=== PATIENT | female | born 1925 | race Caucasian/White ===

== ENCOUNTER 2016-12-13 15:40 | Inpatient (IN) | payer OTHER ==
[~2016-12-13] VITALS: Ht 170.2 cm; Wt 139.0 kg
[~2016-12-13 15:40] MED LIST: ADULT LOW DOSE81 M1 PO; ALPRAZOLAM0.25 MG PO; ASPIRIN E.C.81 M1 PO; B-COMPLEX-VITA1 EACH PO; CITALOPRAM HBR10 MG PO; CITRACAL PLUS1 EAC1 PO; CITRACAL-VIT D1 EACH PO; CLONAZEPAM0.5 MG PO; Citracal W/Vitamin D PO; DULCOLAX5 MG PO; Diflucan PO; FAMOTIDINE20 MG PO; FEMARA PO; FLAGYL500 MG PO; FUROSEMIDE40 MG PO; Flagyl PO; GABAPENTIN100 M1 PO; IRON18 MG PO; IRON325 MG PO; KEFLEX250 MG PO; LASIX20 MG PO; LASIX40 MG PO; LETROZOLE2.5 MG PO; LEXAPRO10 MG PO; LEXAPRO20 MG PO; LISINOPRIL20 MG PO; NEURONTIN100 MG PO; NORVASC10 MG PO; NORVASC5 MG PO; Neurontin PO; ONDANSETRON HCL8 MG PO; PANTOPRAZOLE SO40 MG PO; TRAMADOL HCL50 MG PO; Toprol XL PO; VICODIN,LORT1 TABLET PO; VITAMIN B12-FO1 EACH PO; VITAMIN D31000 UNIT PO; Vancocin Oral Soluti PO; Vicodin,Lortab 5/500 PO; Vicodin,Norco 5/325 PO; XANAX0.25 MG PO; ZANTAC150 M1 PO; ZESTRIL,PRINIVI40 MG PO; ZOSYN3.375 GM/5 IV; Zantac PO
[2016-12-13 16:53] LABS: HEMATOCRIT 27.9 % (36.0-46.0); MCH 29.5 PG (29.0-34.0); MCV 89.4 FL (83-99); MEAN PLAT.VOLUME 9.9 uM^3 (9.5-12.4); PLATELET COUNT 223 K/uL (156-360); RBC DIS.WIDTH-CV 14.3 % (11.8-14.6); RBC DIS.WIDTH-SD 45.3 % (39-53); RED BLOOD COUNT 3.12 M/uL (3.80-5.20); WHITE BLOOD COUNT 13.6 K/uL (4.1-10.2)
[2016-12-13 17:03] LABS: CHLORIDE 103 mEq/L (99-109); SODIUM 138 mEq/L (136-147)
[2016-12-13 17:05] LABS: GLUCOSE 115 mg/dL (70-99)
[2016-12-13 17:06] LABS: ANION GAP 12 MEQ/L (2-14)
[2016-12-13 17:09] LABS: GFR ESTIMATE (CALCULATED) 27 mL/min/; UREA NITROGEN (BUN) 46 mg/dL (9-23)
[2016-12-13 20:33] LABS: EOSINOPHIL (%) 0.1 % (0-5); IMMATURE GRANULOCYTE (%) 0.2 % (0.0-0.7); IMMATURE GRANULOCYTE COUNT 0.2 K/uL; LYMPHOCYTE COUNT 1.1 K/uL (1.0-2.8); MONOCYTE (%) 10.2 % (3-12); MONOCYTE COUNT 1.3 K/uL (0-0.8); NEUTROPHIL (%) 81.2 % (45-76); NEUTROPHIL COUNT 10.6 K/uL (1.8-6.4)
[2016-12-13 20:43] LABS: INTER. NORMALIZED RATIO 1.3; PROTHROMBIN TIME 13.8 (9.2-11.2); PTT 35.2 (25-32)
[2016-12-13 20:52] LABS: TROP-I INTERPRETATION NEGATIVE
[2016-12-14] VITALS: BP 117/72
[2016-12-14 05:00] VITALS: BP 110/61
[2016-12-14 07:32] VITALS: BP 106/64
[2016-12-14 08:51] LABS: ANION GAP 10 MEQ/L (2-14); CHLORIDE 103 MEQ/L (99-109); GFR ESTIMATE (CALCULATED) 35 mL/min/; GLUCOSE 89 mg/dL (70-99); SAMPLE HEMOLYSIS CHECK 0; SAMPLE ICTERIC CHECK 0; SAMPLE LIPEMIA CHECK 0; SODIUM 136 MEQ/L (136-147); UREA NITROGEN (BUN) 39 mg/dL (9-23)
[2016-12-14 08:55] LABS: HEMATOCRIT 24.6 % (36.0-46.0); MCH 29.3 PG (29.0-34.0); MCHC 33.3 G/DL (30.0-36.0); MCV 87.9 FL (83-99); MEAN PLAT.VOLUME 10.1 uM^3 (9.5-12.4); PLATELET COUNT 177 K/uL (156-360); RBC DIS.WIDTH-CV 14.5 % (11.8-14.6); RBC DIS.WIDTH-SD 46.8 % (39-53)
[2016-12-14 08:56] LABS: POTASSIUM 3.1 MEQ/L (3.7-5.4); WHITE BLOOD COUNT 8.6 K/uL (4.1-10.2)
[2016-12-14 11:38] VITALS: BP 122/63
[2016-12-14 15:56] VITALS: BP 141/73
[2016-12-14 16:15] LABS: HEMATOCRIT 28.2 % (36.0-46.0); MCV 88.4 FL (83-99)
[2016-12-14 17:00] LABS: IRON 16 MCG/DL (35-150)
[2016-12-14 17:48] LABS: FERRITIN 246 NG/ML (10-291)
[2016-12-14 18:21] LABS: ADD MIUA? YES; BILIRUBIN NEGATIVE; BLOOD NEGATIVE; COLOR YELLOW ((YELLOW)); GLUCOSE (STRIP) NEGATIVE; KETONES NEGATIVE; LEUKOCYTES MODERATE; NITRITE NEGATIVE; PROTEIN (STRIP) NEGATIVE; SPECIFIC GRAVITY 1.013 (1.000-1.030); UROBILINOGEN 0.2 MG/DL (0.2-1.0)
[2016-12-14 18:37] LABS: CASTS NONE SEEN /LPF; CRYSTALS NONE SEEN; EPITHELIAL CELLS RARE; MUCUS NONE SEEN; RED BLOOD CELLS 0-5 /HPF (0-5); UCUL ADDED? NO
[2016-12-14 18:38] LABS: BACTERIA 1+
[2016-12-14 20:00] VITALS: BP 121/73
[2016-12-15] VITALS: BP 138/74
[2016-12-15] MEDS ORDERED: LO-DOSE ASPIRIN81 M2 PO (03:36)
[2016-12-15] MEDS ORDERED: BUMEX1 MG PO ×2 (03:37→03:38)
[2016-12-15] MEDS ORDERED: CELEXA10 MG PO (03:40)
[2016-12-15] MEDS ORDERED: CLONAZEPAM0.5 MG PO (03:41)
[2016-12-15] MEDS ORDERED: DS PREP PAK1 EACH TP (03:42)
[2016-12-15] MEDS ORDERED: DULCOLAX5 MG PO (03:43)
[2016-12-15] MEDS ORDERED: FAMOTIDINE20 MG PO (03:44)
[2016-12-15] MEDS ORDERED: LISINOPRIL20 MG PO (03:45)
[2016-12-15] MEDS ORDERED: LETROZOLE2.5 MG PO (03:45)
[2016-12-15 03:46] VITALS: BP 118/74
[2016-12-15] MEDS ORDERED: PROTONIX40 MG PO (03:46)
[2016-12-15] MEDS ORDERED: METOPROLOL ER-1 EACH PO (03:46)
[2016-12-15] MEDS ORDERED: TRAMADOL HCL50 MG PO (03:47)
[2016-12-15] MEDS ORDERED: VITAMIN B12-FO1 EACH PO (03:48)
[2016-12-15] MEDS ORDERED: VITAMIN D31000 UNI2 PO (03:48)
[2016-12-15] MEDS ORDERED: ZOFRAN8 MG PO (03:49)
[2016-12-15 06:04] LABS: HEMATOCRIT 25.2 % (36.0-46.0); MCH 29.1 PG (29.0-34.0); MCHC 32.9 G/DL (30.0-36.0); MCV 88.4 FL (83-99); MEAN PLAT.VOLUME 10.2 uM^3 (9.5-12.4); PLATELET COUNT 202 K/uL (156-360); RBC DIS.WIDTH-CV 14.5 % (11.8-14.6); RBC DIS.WIDTH-SD 47.2 % (39-53); RED BLOOD COUNT 2.85 M/uL (3.80-5.20); WHITE BLOOD COUNT 7.1 K/uL (4.1-10.2)
[2016-12-15 06:23] LABS: ANION GAP 12 MEQ/L (2-14); CHLORIDE 104 MEQ/L (99-109); GFR ESTIMATE (CALCULATED) 38 mL/min/; GLUCOSE 78 mg/dL (70-99); POTASSIUM 3.4 MEQ/L (3.7-5.4); SAMPLE HEMOLYSIS CHECK 0; SAMPLE ICTERIC CHECK 0; SAMPLE LIPEMIA CHECK 0; SODIUM 139 MEQ/L (136-147); UREA NITROGEN (BUN) 31 mg/dL (9-23)
[2016-12-15 08:05] VITALS: BP 145/71
[2016-12-15 17:00] VITALS: BP 141/70
[2016-12-15 20:00] VITALS: BP 143/82
[2016-12-16] VITALS: BP 132/79
[2016-12-16 04:40] VITALS: BP 140/85
[2016-12-16 09:03] LABS: HEMATOCRIT 24.8 % (36.0-46.0); MCH 29.3 PG (29.0-34.0); MCHC 33.5 G/DL (30.0-36.0); MCV 87.6 FL (83-99); MEAN PLAT.VOLUME 9.6 uM^3 (9.5-12.4); PLATELET COUNT 184 K/uL (156-360); RBC DIS.WIDTH-CV 14.4 % (11.8-14.6); RBC DIS.WIDTH-SD 46.3 % (39-53); RED BLOOD COUNT 2.83 M/uL (3.80-5.20); WHITE BLOOD COUNT 6.7 K/uL (4.1-10.2)
[2016-12-16 09:40] LABS: ANION GAP 8 MEQ/L (2-14); CHLORIDE 109 MEQ/L (99-109); GFR ESTIMATE (CALCULATED) 55 mL/min/; GLUCOSE 86 mg/dL (70-99); POTASSIUM 3.1 MEQ/L (3.7-5.4); SAMPLE HEMOLYSIS CHECK 0; SAMPLE ICTERIC CHECK 0; SAMPLE LIPEMIA CHECK 0; SODIUM 139 MEQ/L (136-147); UREA NITROGEN (BUN) 19 mg/dL (9-23)
[2016-12-16 16:55] LABS: HEMATOCRIT 28.6 % (36.0-46.0); MCH 29.2 PG (29.0-34.0); MCHC 33.2 G/DL (30.0-36.0); MEAN PLAT.VOLUME 9.8 uM^3 (9.5-12.4); PLATELET COUNT 191 K/uL (156-360); RBC DIS.WIDTH-CV 14.4 % (11.8-14.6); RBC DIS.WIDTH-SD 46.9 % (39-53); RED BLOOD COUNT 3.25 M/uL (3.80-5.20); WHITE BLOOD COUNT 7.9 K/uL (4.1-10.2)
[2016-12-16 20:00] VITALS: BP 139/92
[2016-12-17] VITALS: BP 147/67
[2016-12-17 04:00] VITALS: BP 145/89
[2016-12-17 07:47] VITALS: BP 139/89
[2016-12-17 09:21] LABS: ANION GAP 10 MEQ/L (2-14); CHLORIDE 108 MEQ/L (99-109); GFR ESTIMATE (CALCULATED) > 59 mL/min/; GLUCOSE 95 mg/dL (70-99); POTASSIUM 3.6 MEQ/L (3.7-5.4); SAMPLE HEMOLYSIS CHECK 0; SAMPLE ICTERIC CHECK 0; SAMPLE LIPEMIA CHECK 0; SODIUM 140 MEQ/L (136-147); UREA NITROGEN (BUN) 13 mg/dL (9-23)
[2016-12-17 10:56] VITALS: BP 136/65
[2016-12-17] MEDS ORDERED: METRONIDAZOLE500 MG PO (13:14)
[2016-12-17 14:55] VITALS: BP 128/69
== END 2016-12-17 19:50 | disposition home or self-care (01) | DRG 603 ==
LOC: EME 15:40 → EDOF 23:12 → 5SOUTH 23:12
PROVIDERS: Emergency Medicine; Physician Assistant; Physician Assistant Medical
DX: L03.115 Cellulitis of right lower limb (principal); K56.60 Unspecified intestinal obstruction; A04.7 Enterocolitis due to Clostridium difficile; N17.9 Acute kidney failure, unspecified; K55.9 Vascular disorder of intestine, unspecified; F33.9 Major depressive disorder, recurrent, unspecified; N39.0 Urinary tract infection, site not specified; K92.2 Gastrointestinal hemorrhage, unspecified; R18.8 Other ascites; R64 Cachexia; N13.30 Unspecified hydronephrosis; L03.116 Cellulitis of left lower limb; F17.200 Nicotine dependence, unspecified, uncomplicated; I10 Essential (primary) hypertension; K52.9 Noninfective gastroenteritis and colitis, unspecified; L73.9 Follicular disorder, unspecified; D50.0 Iron deficiency anemia secondary to blood loss (chronic); I48.2 Chronic atrial fibrillation; F41.9 Anxiety disorder, unspecified; G89.4 Chronic pain syndrome; K59.09 Other constipation; Z86.718 Personal history of other venous thrombosis and embolism; Z90.49 Acquired absence of other specified parts of digestive tract; Z90.12 Acquired absence of left breast and nipple; Z85.3 Personal history of malignant neoplasm of breast; Z85.51 Personal history of malignant neoplasm of bladder
CPT/HCPCS: 71010; 74176; 80048; 81003; 82272; 82607; 82728; 82746; 83540; 83605; 84466; 84484; 85014; 85018; 85025; 85027; 85610; 85730; 86850; 86900; 86901; 87040; 87493; 87801; 93005; 93306; 97530 GO; 99281; 99285; C9113; J0690; J1756; J3480; J7030; J7050; S0030

== ENCOUNTER 2016-12-26 11:59 | Inpatient (IN) | payer OTHER ==
[~2016-12-26] VITALS: Ht 170.2 cm; Wt 67.7 kg
[~2016-12-26 11:59] MED LIST changes: +BUMEX1 MG PO; +CELEXA10 MG PO; +DS PREP PAK1 EACH TP; +LO-DOSE ASPIRIN81 M2 PO; +METOPROLOL ER-1 EACH PO; +METRONIDAZOLE500 MG PO; +PROTONIX40 MG PO; +VITAMIN D31000 UNI2 PO; +ZOFRAN8 MG PO
[2016-12-26 12:49] LABS: EOSINOPHIL (%) 0.2 % (0-5); HEMATOCRIT 31.7 % (36.0-46.0); IMMATURE GRANULOCYTE (%) 0.2 % (0.0-0.7); IMMATURE GRANULOCYTE COUNT 0.2 K/uL; MCH 29.2 PG (29.0-34.0); MCHC 32.8 G/DL (30.0-36.0); MEAN PLAT.VOLUME 9.8 uM^3 (9.5-12.4); MONOCYTE (%) 11.1 % (3-12); MONOCYTE COUNT 0.9 K/uL (0-0.8); NEUTROPHIL (%) 76.7 % (45-76); NEUTROPHIL COUNT 6.3 K/uL (1.8-6.4); PLATELET COUNT 243 K/uL (156-360); RBC DIS.WIDTH-CV 15.7 % (11.8-14.6); RBC DIS.WIDTH-SD 48.7 % (39-53); RED BLOOD COUNT 3.56 M/uL (3.80-5.20); WHITE BLOOD COUNT 8.3 K/uL (4.1-10.2)
[2016-12-26 12:54] LABS: INTER. NORMALIZED RATIO 1.4; PROTHROMBIN TIME 14.7 (9.2-11.2)
[2016-12-26 12:59] LABS: CHLORIDE 105 mEq/L (99-109); POTASSIUM 4.2 mEq/L (3.7-5.4); SODIUM 134 mEq/L (136-147)
[2016-12-26 13:01] LABS: GLUCOSE 84 mg/dL (70-99)
[2016-12-26 13:03] LABS: ANION GAP 13 MEQ/L (2-14)
[2016-12-26 13:05] LABS: GFR ESTIMATE (CALCULATED) 30 mL/min/
[2016-12-26 13:06] LABS: UREA NITROGEN (BUN) 24 mg/dL (9-23)
[2016-12-26] MEDS ORDERED: CYANOCOBALAM1000 MCG PO (13:57)
[2016-12-26] MEDS ORDERED: TUMS500 MG PO (13:57)
[2016-12-26] MEDS ORDERED: METOPROLOL SUCC25 MG PO (13:58)
[2016-12-26] MEDS ORDERED: GABAPENTIN100 MG PO (14:02)
[2016-12-26 14:23] LABS: C-REACTIVE PROTEIN 3.7 MG/L (0-10)
[2016-12-26 17:00] VITALS: BP 100/53
[2016-12-26 17:07] VITALS: BP 100/53
[2016-12-26 21:10] VITALS: BP 102/58
[2016-12-27 01:08] VITALS: BP 110/80
[2016-12-27 04:30] VITALS: BP 108/74
[2016-12-27 07:28] VITALS: BP 110/80
[2016-12-27 07:35] LABS: EOSINOPHIL (%) 1.2 % (0-5); EOSINOPHIL COUNT 0.1 K/uL (0-0.3); HEMATOCRIT 32.6 % (36.0-46.0); IMMATURE GRANULOCYTE (%) 0.4 % (0.0-0.7); LYMPHOCYTE COUNT 0.6 K/uL (1.0-2.8); MCH 29.5 PG (29.0-34.0); MCHC 33.4 G/DL (30.0-36.0); MCV 88.3 FL (83-99); MEAN PLAT.VOLUME 10.1 uM^3 (9.5-12.4); MONOCYTE (%) 14.2 % (3-12); MONOCYTE COUNT 1.2 K/uL (0-0.8); NEUTROPHIL (%) 76.1 % (45-76); NEUTROPHIL COUNT 6.3 K/uL (1.8-6.4); PLATELET COUNT 225 K/uL (156-360); RBC DIS.WIDTH-SD 51.1 % (39-53); RED BLOOD COUNT 3.69 M/uL (3.80-5.20); WHITE BLOOD COUNT 8.3 K/uL (4.1-10.2)
[2016-12-27 07:48] LABS: ANION GAP 11 MEQ/L (2-14); CHLORIDE 107 MEQ/L (99-109); GFR ESTIMATE (CALCULATED) 32 mL/min/; GLUCOSE 72 mg/dL (70-99); POTASSIUM 3.8 MEQ/L (3.7-5.4); SAMPLE HEMOLYSIS CHECK 0; SAMPLE ICTERIC CHECK 0; SAMPLE LIPEMIA CHECK 0; SODIUM 137 MEQ/L (136-147); UREA NITROGEN (BUN) 23 mg/dL (9-23)
[2016-12-27 09:07] LABS: ADD MIUA? YES; BILIRUBIN NEGATIVE; BLOOD NEGATIVE; COLOR DK YELLOW ((YELLOW)); GLUCOSE (STRIP) NEGATIVE; KETONES NEGATIVE; LEUKOCYTES SMALL; NITRITE NEGATIVE; PH, URINE 5.5 (5-8); PROTEIN (STRIP) NEGATIVE; UROBILINOGEN 0.2 MG/DL (0.2-1.0)
[2016-12-27 10:17] LABS: BACTERIA 1+; EPITHELIAL CELLS RARE; MUCUS NONE SEEN; RED BLOOD CELLS 0-5 /HPF (0-5)
[2016-12-27 10:18] LABS: CASTS NONE SEEN /LPF; CRYSTALS NONE SEEN
[2016-12-27 11:52] VITALS: BP 110/80
[2016-12-27 16:10] VITALS: BP 158/66
[2016-12-27 23:29] VITALS: BP 128/70
[2016-12-28 03:37] VITALS: BP 123/79
[2016-12-28 08:00] VITALS: BP 118/75
[2016-12-28 12:00] VITALS: BP 143/82
[2016-12-28 13:54] LABS: HEMATOCRIT 29.3 % (36.0-46.0); MCH 29.9 PG (29.0-34.0); MCHC 33.8 G/DL (30.0-36.0); MCV 88.5 FL (83-99); MEAN PLAT.VOLUME 10.7 uM^3 (9.5-12.4); PLATELET COUNT 221 K/uL (156-360); RBC DIS.WIDTH-CV 16.1 % (11.8-14.6); RBC DIS.WIDTH-SD 51.7 % (39-53); RED BLOOD COUNT 3.31 M/uL (3.80-5.20); WHITE BLOOD COUNT 6.5 K/uL (4.1-10.2)
[2016-12-28 14:09] LABS: ALKALINE PHOSPHATASE 65 IU/L (3-129); ANION GAP 8 MEQ/L (2-14); CHLORIDE 109 MEQ/L (99-109); GFR ESTIMATE (CALCULATED) 45 mL/min/; POTASSIUM 4.1 MEQ/L (3.7-5.4); SAMPLE HEMOLYSIS CHECK 0; SAMPLE ICTERIC CHECK 0; SAMPLE LIPEMIA CHECK 0; SODIUM 137 MEQ/L (136-147); TOTAL BILIRUBIN 0.5 MG/DL (0.0-1.0); UREA NITROGEN (BUN) 22 mg/dL (9-23)
[2016-12-28 14:10] LABS: GLUCOSE 91 mg/dL (70-99)
[2016-12-28 23:41] VITALS: BP 131/72
[2016-12-29 04:00] VITALS: BP 140/74
[2016-12-29 07:34] LABS: EOSINOPHIL (%) 0.4 % (0-5); HEMATOCRIT 26.2 % (36.0-46.0); IMMATURE GRANULOCYTE (%) 0.4 % (0.0-0.7); LYMPHOCYTE COUNT 1.2 K/uL (1.0-2.8); MCH 29.4 PG (29.0-34.0); MCHC 33.6 G/DL (30.0-36.0); MCV 87.6 FL (83-99); MEAN PLAT.VOLUME 10.5 uM^3 (9.5-12.4); MONOCYTE (%) 9.1 % (3-12); MONOCYTE COUNT 0.7 K/uL (0-0.8); NEUTROPHIL (%) 73.6 % (45-76); NEUTROPHIL COUNT 5.3 K/uL (1.8-6.4); PLATELET COUNT 208 K/uL (156-360); RBC DIS.WIDTH-CV 15.9 % (11.8-14.6); RBC DIS.WIDTH-SD 50.3 % (39-53); RED BLOOD COUNT 2.99 M/uL (3.80-5.20); WHITE BLOOD COUNT 7.2 K/uL (4.1-10.2)
[2016-12-29 08:00] VITALS: BP 127/79
[2016-12-29 08:09] LABS: ANION GAP 7 MEQ/L (2-14); CHLORIDE 113 MEQ/L (99-109); GFR ESTIMATE (CALCULATED) 55 mL/min/; GLUCOSE 68 mg/dL (70-99); POTASSIUM 4.4 MEQ/L (3.7-5.4); SAMPLE HEMOLYSIS CHECK 0; SAMPLE ICTERIC CHECK 0; SAMPLE LIPEMIA CHECK 0; SODIUM 141 MEQ/L (136-147); UREA NITROGEN (BUN) 18 mg/dL (9-23)
[2016-12-29 10:04] LABS: ALKALINE PHOSPHATASE 56 IU/L (3-129); DIRECT BILIRUBIN 0.1 mg/dL (0.0-0.3); MAGNESIUM 1.2 mg/dl (1.3-2.7); TOTAL BILIRUBIN 0.5 MG/DL (0.0-1.0)
[2016-12-29] MEDS ORDERED: IRON325 MG PO (12:08)
[2016-12-29 15:10] VITALS: BP 127/68
[2016-12-29 19:01] VITALS: BP 124/72
[2016-12-29 23:31] VITALS: BP 126/86
[2016-12-30 04:14] VITALS: BP 148/83
[2016-12-30 12:00] VITALS: BP 125/79
== END 2016-12-30 13:07 | DRG 683 ==
LOC: EME → EDBD 11:59 → EME 11:59 → 2EAST 13:43 → 4EAST 13:43 → EDOF 13:43 → 4EAST 16:11 → 2EAST 12-27 11:22
PROVIDERS: Emergency Medicine; Hospitalist; Internal Medicine
DX: N17.9 Acute kidney failure, unspecified (principal); R64 Cachexia; R19.5 Other fecal abnormalities; I95.9 Hypotension, unspecified; D64.9 Anemia, unspecified; R62.7 Adult failure to thrive; E83.42 Hypomagnesemia; E86.0 Dehydration; I10 Essential (primary) hypertension; I48.0 Paroxysmal atrial fibrillation; F41.9 Anxiety disorder, unspecified; J44.9 Chronic obstructive pulmonary disease, unspecified; K21.9 Gastro-esophageal reflux disease without esophagitis; G89.29 Other chronic pain; F32.9 Major depressive disorder, single episode, unspecified; Z66 Do not resuscitate; Z87.891 Personal history of nicotine dependence; Z85.3 Personal history of malignant neoplasm of breast; Z85.51 Personal history of malignant neoplasm of bladder; Z90.12 Acquired absence of left breast and nipple; Z79.82 Long term (current) use of aspirin; Z60.2 Problems related to living alone
CPT/HCPCS: 71010; 80048; 80053; 80076; 81003; 83735; 85025; 85027; 85610; 86140; 86850; 86900; 86901; 86920; 87493; 93971; 97530 GO; 97530 GP; 99281; 99285; J3475; J7030

== ENCOUNTER 2017-01-21 18:54 | Emergency (ER) | payer OTHER ==
[~2017-01-21] VITALS: Ht 177.8 cm; Wt 74.2 kg
[~2017-01-21 18:54] MED LIST changes: +CYANOCOBALAM1000 MCG PO; +GABAPENTIN100 MG PO; +METOPROLOL SUCC25 MG PO; +TUMS500 MG PO
[2017-01-21] MEDS ORDERED: TYLENOL REGULA325 MG PO (19:28)
[2017-01-21 21:51] VITALS: BP 173/75
== END 2017-01-21 21:57 ==
LOC: EME → EDBD 18:54 → EME 21:57
DX: S09.90XA Unspecified injury of head, initial encounter (principal); S00.03XA Contusion of scalp, initial encounter; W06.XXXA Fall from bed, initial encounter; Y92.122 Bedroom in nursing home as the place of occurrence of the external cause; I10 Essential (primary) hypertension; K21.9 Gastro-esophageal reflux disease without esophagitis; Z85.3 Personal history of malignant neoplasm of breast; F17.200 Nicotine dependence, unspecified, uncomplicated
CPT/HCPCS: 70450; 99281; 99284

== ENCOUNTER 2017-03-29 12:48 | Emergency (ER) | payer OTHER ==
[~2017-03-29] VITALS: Ht 165.1 cm; Wt 62.4 kg
[~2017-03-29 12:48] MED LIST changes: +KLOR-CON M2020 MEQ PO; +TYLENOL REGULA325 MG PO
[2017-03-29 13:38] LABS: EOSINOPHIL (%) 0.2 % (0-5); HEMATOCRIT 31.7 % (36.0-46.0); IMMATURE GRANULOCYTE (%) 0.7 % (0.0-0.7); IMMATURE GRANULOCYTE COUNT 0.1 K/uL; INSTRUMENT ABS NEUTROPHIL CT 6.3 K/uL; LYMPHOCYTE COUNT 1.1 K/uL (1.0-2.8); MCH 29.8 PG (29.0-34.0); MCHC 31.9 G/DL (30.0-36.0); MCV 93.5 FL (83-99); MEAN PLAT.VOLUME 9.7 uM^3 (9.5-12.4); MONOCYTE (%) 11.8 % (3-12); NEUTROPHIL (%) 74.4 % (45-76); NEUTROPHIL COUNT 6.3 K/uL (1.8-6.4); PLATELET COUNT 324 K/uL (156-360); RBC DIS.WIDTH-CV 15.1 % (11.8-14.6); RBC DIS.WIDTH-SD 51.5 % (39-53); RED BLOOD COUNT 3.39 M/uL (3.80-5.20); WHITE BLOOD COUNT 8.5 K/uL (4.1-10.2)
[2017-03-29 13:46] LABS: CHLORIDE 107 mEq/L (99-109); POTASSIUM 3.3 mEq/L (3.7-5.4); SODIUM 140 mEq/L (136-147)
[2017-03-29 13:48] LABS: GLUCOSE 88 mg/dL (70-99)
[2017-03-29 13:49] LABS: ANION GAP 10 MEQ/L (2-14)
[2017-03-29 13:52] LABS: GFR ESTIMATE (CALCULATED) > 59 mL/min/
[2017-03-29 13:53] LABS: UREA NITROGEN (BUN) 23 mg/dL (9-23)
[2017-03-29 13:59] LABS: TROP-I INTERPRETATION NEGATIVE; TROPONIN-I 0.05 ng/mL (0.0-0.30)
[2017-03-29 14:10] LABS: ADD MIUA? YES; BILIRUBIN NEGATIVE; BLOOD MODERATE; COLOR YELLOW ((YELLOW)); GLUCOSE (STRIP) NEGATIVE; KETONES 5; LEUKOCYTES NEGATIVE; NITRITE NEGATIVE; PROTEIN (STRIP) 30; SPECIFIC GRAVITY 1.013 (1.000-1.030); UROBILINOGEN 0.2 MG/DL (0.2-1.0)
[2017-03-29 14:33] LABS: BACTERIA RARE /HPF; EPITHELIAL CELLS RARE /HPF; MUCUS TRACE /LPF; RED BLOOD CELLS 0-5 /HPF (0-5); UCUL ADDED? NO; WHITE BLOOD CELLS NONE SEEN /HPF (0-5)
[2017-03-29] MEDS ORDERED: AMBIEN5 MG PO (15:31)
[2017-03-29] MEDS ORDERED: SENNA8.6 MG PO (15:32)
[2017-03-29] MEDS ORDERED: PANTOPRAZOLE SO40 MG PO (15:32)
[2017-03-29] MEDS ORDERED: TRAZODONE HCL50 MG PO (15:32)
[2017-03-29] MEDS ORDERED: FUROSEMIDE40 MG PO (15:33)
[2017-03-29] MEDS ORDERED: FINASTERIDE5 MG PO (15:33)
[2017-03-29 18:36] VITALS: BP 141/89
== END 2017-03-29 18:37 ==
LOC: EME 12:48
PROVIDERS: Emergency Medicine
DX: R41.82 Altered mental status, unspecified (principal); R07.9 Chest pain, unspecified; I10 Essential (primary) hypertension; Z85.3 Personal history of malignant neoplasm of breast; Z88.6 Allergy status to analgesic agent; Z88.2 Allergy status to sulfonamides; Z87.891 Personal history of nicotine dependence
CPT/HCPCS: 70450; 71010; 80048; 81003; 84484; 85025; 93005; 99281; 99284

== ENCOUNTER 2017-05-17 22:34 | Inpatient (IN) | payer OTHER ==
[~2017-05-17] VITALS: Ht 160 cm; Wt 65.0 kg
[~2017-05-17 22:34] MED LIST changes: +AMBIEN5 MG PO; +FINASTERIDE5 MG PO; +SENNA8.6 MG PO; +TRAZODONE HCL50 MG PO
[2017-05-17 23:07] LABS: HEMATOCRIT 27.6 % (36.0-46.0); MCH 28.6 PG (29.0-34.0); MCHC 31.5 G/DL (30.0-36.0); MCV 90.8 FL (83-99); MEAN PLAT.VOLUME 9.7 uM^3 (9.5-12.4); PLATELET COUNT 230 K/uL (156-360); RBC DIS.WIDTH-CV 14.5 % (11.8-14.6); RBC DIS.WIDTH-SD 47.9 % (39-53); RED BLOOD COUNT 3.04 M/uL (3.80-5.20)
[2017-05-17 23:16] LABS: INTER. NORMALIZED RATIO 1.3; PROTHROMBIN TIME 13.4 (9.2-11.2); PTT 36.2 (25-32)
[2017-05-17 23:21] LABS: CHLORIDE 100 mEq/L (99-109); POTASSIUM 3.5 mEq/L (3.7-5.4); SODIUM 135 mEq/L (136-147)
[2017-05-17 23:22] LABS: GLUCOSE 105 mg/dL (70-99)
[2017-05-17 23:24] LABS: ANION GAP 9 MEQ/L (2-14)
[2017-05-17 23:26] LABS: GFR ESTIMATE (CALCULATED) 50 mL/min/
[2017-05-17 23:27] LABS: UREA NITROGEN (BUN) 15 mg/dL (9-23)
[2017-05-17 23:31] LABS: TROP-I INTERPRETATION INDETERMINATE; TROPONIN-I 0.49 ng/mL (0.0-0.30)
[2017-05-18] VITALS (7 sets, daily range): BP systolic 143–156; BP diastolic 73–94
[2017-05-18] MEDS ORDERED: CEPHALEXIN500 MG PO (00:57)
[2017-05-18] MEDS ORDERED: FAMOTIDINE20 MG PO (00:59)
[2017-05-18] MEDS ORDERED: FLORASTOR250 MG PO (01:02)
[2017-05-18] MEDS ORDERED: VITAMIN D31000 UNI2 PO (01:05)
[2017-05-18] MEDS ORDERED: CYANOCOBALAM1000 MCG PO (01:05)
[2017-05-18] MEDS ORDERED: ZOFRAN8 MG PO (01:08)
[2017-05-18 01:46] LABS: BASE EXCESS 3.2 mEq/L (-3 to +3); BICARBONATE 26.5 mEq/L (22-26); CARBOXY HGB 1.6 % (0-5); METHEMOGLOBIN 1.7 % (0-1.5); PCO2 34 mm Hg (35-45); PO2 74 mm Hg (80-100)
[2017-05-18 01:47] LABS: COMMENTS - BLOOD GASES C+; DEVICE NC; O2 FLOW 4 L/MIN; SITE LR; TOTAL RESP RATE 20 resp/min
[2017-05-18 03:28] LABS: TOTAL BILIRUBIN 0.6 mg/dL (0.0-1.0)
[2017-05-18 03:29] LABS: ALKALINE PHOSPHATASE 81 IU/L (3-129)
[2017-05-18 03:32] LABS: DIRECT BILIRUBIN 0.3 mg/dL (0.0-0.3)
[2017-05-18 04:26] LABS: METH RESISTANT S AUREUS PCR POSITIVE (NEGATIVE)
[2017-05-18 04:30] LABS: PROBE CHECK PASS
[2017-05-18 05:30] LABS: EOSINOPHIL (%) 0.1 % (0-5); HEMATOCRIT 26.3 % (36.0-46.0); IMMATURE GRANULOCYTE (%) 1.1 % (0.0-0.7); IMMATURE GRANULOCYTE COUNT 0.1 K/uL; INSTRUMENT ABS NEUTROPHIL CT 9.7 K/uL; LYMPHOCYTE COUNT 0.5 K/uL (1.0-2.8); MCH 29.2 PG (29.0-34.0); MCHC 32.3 G/DL (30.0-36.0); MCV 90.4 FL (83-99); MEAN PLAT.VOLUME 10.1 uM^3 (9.5-12.4); MONOCYTE (%) 4.4 % (3-12); MONOCYTE COUNT 0.5 K/uL (0-0.8); NEUTROPHIL (%) 89.8 % (45-76); NEUTROPHIL COUNT 9.7 K/uL (1.8-6.4); PLATELET COUNT 235 K/uL (156-360); RBC DIS.WIDTH-CV 14.4 % (11.8-14.6); RBC DIS.WIDTH-SD 47.9 % (39-53); RED BLOOD COUNT 2.91 M/uL (3.80-5.20); WHITE BLOOD COUNT 10.8 K/uL (4.1-10.2)
[2017-05-18 05:48] LABS: TROP-I INTERPRETATION INDETERMINATE; TROPONIN-I 0.45 ng/mL (0.0-0.30)
[2017-05-18 05:54] LABS: ANION GAP 11 MEQ/L (2-14); CHLORIDE 100 MEQ/L (99-109); GFR ESTIMATE (CALCULATED) 50 mL/min/; GLUCOSE 124 mg/dL (70-99); POTASSIUM 3.3 MEQ/L (3.7-5.4); SAMPLE HEMOLYSIS CHECK 0; SAMPLE ICTERIC CHECK 0; SAMPLE LIPEMIA CHECK 0; SODIUM 136 MEQ/L (136-147); UREA NITROGEN (BUN) 15 mg/dL (9-23)
[2017-05-18 07:51] LABS: INTERNAL CONTROL VALID? YES
[2017-05-18 17:21] LABS: TROP-I INTERPRETATION INDETERMINATE; TROPONIN-I 0.39 ng/mL (0.0-0.30)
[2017-05-19 06:43] LABS: HEMATOCRIT 26.2 % (36.0-46.0); MCH 28.7 PG (29.0-34.0); MCHC 31.3 G/DL (30.0-36.0); MCV 91.6 FL (83-99); MEAN PLAT.VOLUME 10.3 uM^3 (9.5-12.4); PLATELET COUNT 238 K/uL (156-360); RBC DIS.WIDTH-CV 14.4 % (11.8-14.6); RBC DIS.WIDTH-SD 48.1 % (39-53); RED BLOOD COUNT 2.86 M/uL (3.80-5.20); WHITE BLOOD COUNT 8.8 K/uL (4.1-10.2)
[2017-05-19 07:18] LABS: ANION GAP 9 MEQ/L (2-14); CHLORIDE 103 MEQ/L (99-109); GFR ESTIMATE (CALCULATED) 50 mL/min/; GLUCOSE 101 mg/dL (70-99); MAGNESIUM 1.6 mg/dl (1.3-2.7); SAMPLE HEMOLYSIS CHECK 0; SAMPLE ICTERIC CHECK 0; SAMPLE LIPEMIA CHECK 0; SODIUM 139 MEQ/L (136-147); UREA NITROGEN (BUN) 20 mg/dL (9-23)
[2017-05-19 07:23] LABS: POTASSIUM 4.6 MEQ/L (3.7-5.4)
[2017-05-19 08:19] VITALS: BP 177/92
[2017-05-19 11:43] VITALS: BP 150/72
[2017-05-19 16:21] VITALS: BP 134/76
[2017-05-19 23:40] VITALS: BP 133/71
[2017-05-20 06:05] LABS: HEMATOCRIT 24.4 % (36.0-46.0); MCHC 32.8 G/DL (30.0-36.0); MCV 91.4 FL (83-99); MEAN PLAT.VOLUME 10.4 uM^3 (9.5-12.4); PLATELET COUNT 219 K/uL (156-360); RBC DIS.WIDTH-CV 14.4 % (11.8-14.6); RBC DIS.WIDTH-SD 47.8 % (39-53); RED BLOOD COUNT 2.67 M/uL (3.80-5.20); WHITE BLOOD COUNT 8.9 K/uL (4.1-10.2)
[2017-05-20 06:45] LABS: ANION GAP 9 MEQ/L (2-14); CHLORIDE 101 MEQ/L (99-109); GFR ESTIMATE (CALCULATED) 50 mL/min/; GLUCOSE 102 mg/dL (70-99); MAGNESIUM 1.7 mg/dl (1.3-2.7); POTASSIUM 4.1 MEQ/L (3.7-5.4); SAMPLE HEMOLYSIS CHECK 0; SAMPLE ICTERIC CHECK 0; SAMPLE LIPEMIA CHECK 0; SODIUM 137 MEQ/L (136-147); UREA NITROGEN (BUN) 24 mg/dL (9-23)
[2017-05-20] MEDS ORDERED: PREDNISONE10 M1 PO (07:15)
[2017-05-20] MEDS ORDERED: CEFDINIR300 MG PO (07:15)
[2017-05-20 07:24] VITALS: BP 131/64
== END 2017-05-20 12:22 | DRG 190 ==
LOC: EME 22:34 → 5SOUTH 05-18 00:56 → EDOF 05-18 00:56 → 4WEST 05-18 02:54 → 5SOUTH 05-18 14:03 → 4WEST 05-18 14:03 → 5SOUTH 05-18 14:53
PROVIDERS: Emergency Medicine; Hospitalist
DX: J44.0 Chronic obstructive pulmonary disease with (acute) lower respiratory infection (principal); J18.9 Pneumonia, unspecified organism; Y95 Nosocomial condition; J96.21 Acute and chronic respiratory failure with hypoxia; N39.0 Urinary tract infection, site not specified; L03.116 Cellulitis of left lower limb; J44.1 Chronic obstructive pulmonary disease with (acute) exacerbation; I48.0 Paroxysmal atrial fibrillation; E83.42 Hypomagnesemia; E87.1 Hypo-osmolality and hyponatremia; E87.6 Hypokalemia; E87.70 Fluid overload, unspecified; F03.90 Unspecified dementia, unspecified severity, without behavioral disturbance, psychotic disturbance, mood disturbance, and anxiety; I87.2 Venous insufficiency (chronic) (peripheral); J90 Pleural effusion, not elsewhere classified; D64.9 Anemia, unspecified; K21.9 Gastro-esophageal reflux disease without esophagitis; I10 Essential (primary) hypertension; I51.7 Cardiomegaly; F32.9 Major depressive disorder, single episode, unspecified; Z66 Do not resuscitate; Z85.51 Personal history of malignant neoplasm of bladder; Z85.528 Personal history of other malignant neoplasm of kidney; Z85.3 Personal history of malignant neoplasm of breast; Z87.891 Personal history of nicotine dependence; Z99.3 Dependence on wheelchair; Z90.10 Acquired absence of unspecified breast and nipple
CPT/HCPCS: 36600; 71010; 71250; 78582; 80048; 80076; 82803; 83605; 83735; 83880; 84484; 85025; 85027; 85379; 85610; 85730; 86860; 86870; 86880; 86880 90; 86885 90; 86886 90; 86900; 86900 90; 86901; 86901 90; 86904 90; 86906 90; 86920; 86970 90; 86976 90; 87040; 87070; 87205; 87449; 87641; 93005; 93971; 94640; 94799; 99202; 99281; 99285; A9540; A9567; J0456; J0696; J1644; J1940; J2543; J2930; J7040; J7050; J7512

== ENCOUNTER 2017-05-30 16:02 | Observation (INO) | payer OTHER ==
[~2017-05-30] VITALS: Ht 165.1 cm; Wt 68.3 kg
[~2017-05-30 16:02] MED LIST changes: +CEFDINIR300 MG PO; +CEPHALEXIN500 MG PO; +FLORASTOR250 MG PO; +PREDNISONE10 M1 PO
[2017-05-30 17:55] LABS: HEMATOCRIT 21.6 % (36.0-46.0); MCH 28.9 PG (29.0-34.0); MCV 93.1 FL (83-99); MEAN PLAT.VOLUME 10.7 uM^3 (9.5-12.4); PLATELET COUNT 205 K/uL (156-360); RBC DIS.WIDTH-CV 15.7 % (11.8-14.6); RBC DIS.WIDTH-SD 52.2 % (39-53); RED BLOOD COUNT 2.32 M/uL (3.80-5.20); WHITE BLOOD COUNT 10.6 K/uL (4.1-10.2)
[2017-05-30 17:57] LABS: CHLORIDE 101 mEq/L (99-109); POTASSIUM 3.7 mEq/L (3.7-5.4); SODIUM 134 mEq/L (136-147)
[2017-05-30 18:00] LABS: GLUCOSE 95 mg/dL (70-99)
[2017-05-30 18:01] LABS: ANION GAP 9 MEQ/L (2-14)
[2017-05-30 18:02] LABS: TOTAL BILIRUBIN 0.7 mg/dL (0.0-1.0)
[2017-05-30 18:03] LABS: ALKALINE PHOSPHATASE 79 IU/L (3-129); GFR ESTIMATE (CALCULATED) 45 mL/min/
[2017-05-30 18:04] LABS: UREA NITROGEN (BUN) 21 mg/dL (9-23)
[2017-05-30 18:09] LABS: TROP-I INTERPRETATION NEGATIVE; TROPONIN-I 0.23 ng/mL (0.0-0.30)
[2017-05-30] MEDS ORDERED: ONDANSETRON HCL8 MG PO (20:37)
[2017-05-30 23:28] VITALS: BP 143/73
[2017-05-30 23:47] VITALS: BP 147/70
[2017-05-31] VITALS (10 sets, daily range): BP systolic 127–170; BP diastolic 68–82
[2017-05-31 01:26] LABS: TROP-I INTERPRETATION NEGATIVE
[2017-05-31 02:52] LABS: ADD MIUA? YES; BILIRUBIN NEGATIVE; BLOOD MODERATE; COLOR YELLOW ((YELLOW)); GLUCOSE (STRIP) NEGATIVE; KETONES NEGATIVE; LEUKOCYTES MODERATE; NITRITE NEGATIVE; PROTEIN (STRIP) NEGATIVE; SPECIFIC GRAVITY 1.008 (1.000-1.030); UROBILINOGEN 0.2 MG/DL (0.2-1.0)
[2017-05-31 02:59] LABS: BACTERIA 2+ /HPF; EPITHELIAL CELLS RARE /HPF; MUCUS TRACE /LPF; UCUL ADDED? YES
[2017-05-31 03:49] LABS: METH RESISTANT S AUREUS PCR POSITIVE (NEGATIVE)
[2017-05-31 03:52] LABS: PROBE CHECK PASS
[2017-05-31 06:46] LABS: HEMATOCRIT 24.4 % (36.0-46.0); MCH 29.1 PG (29.0-34.0); MEAN PLAT.VOLUME 10.4 uM^3 (9.5-12.4); NRBC (%) 0.2 /100 WBC (0-0); PLATELET COUNT 199 K/uL (156-360); RBC DIS.WIDTH-CV 15.7 % (11.8-14.6); RBC DIS.WIDTH-SD 50.9 % (39-53); RED BLOOD COUNT 2.68 M/uL (3.80-5.20); WHITE BLOOD COUNT 9.5 K/uL (4.1-10.2)
[2017-05-31 07:15] LABS: ANION GAP 8 MEQ/L (2-14); CHLORIDE 101 MEQ/L (99-109); GFR ESTIMATE (CALCULATED) 45 mL/min/; GLUCOSE 94 mg/dL (70-99); POTASSIUM 4.1 MEQ/L (3.7-5.4); SAMPLE HEMOLYSIS CHECK 0; SAMPLE ICTERIC CHECK 0; SAMPLE LIPEMIA CHECK 0; SODIUM 138 MEQ/L (136-147); UREA NITROGEN (BUN) 21 mg/dL (9-23)
[2017-05-31 07:17] LABS: TROP-I INTERPRETATION NEGATIVE; TROPONIN-I 0.21 ng/mL (0.0-0.30)
[2017-05-31 15:04] LABS: HEMATOCRIT 27.5 % (36.0-46.0); MCV 90.5 FL (83-99)
[2017-05-31] MEDS ORDERED: AMOX TR-K CLV1 EAC3 PO (15:11)
== END 2017-05-31 16:10 ==
LOC: EME → EDBD 16:02 → EDOF 23:58 → 5WEST 23:58 → EDOF 23:58 → 5WEST 05-31 01:38
PROVIDERS: Emergency Medicine; Hospitalist; Nurse Practitioner Family
PROC: 30233N1 Transfusion of Nonautologous Red Blood Cells into Peripheral Vein, Percutaneous Approach (ICD-10-PCS; principal; 2017-05-30)
DX: D62 Acute posthemorrhagic anemia (principal); E87.1 Hypo-osmolality and hyponatremia; J90 Pleural effusion, not elsewhere classified; J44.9 Chronic obstructive pulmonary disease, unspecified; S70.11XA Contusion of right thigh, initial encounter; I10 Essential (primary) hypertension; F03.90 Unspecified dementia, unspecified severity, without behavioral disturbance, psychotic disturbance, mood disturbance, and anxiety; R41.0 Disorientation, unspecified; R60.0 Localized edema; R18.8 Other ascites; R60.1 Generalized edema; Z79.82 Long term (current) use of aspirin; Z88.2 Allergy status to sulfonamides; Z91.040 Latex allergy status; Z91.09 Other allergy status, other than to drugs and biological substances; Z88.5 Allergy status to narcotic agent
CPT/HCPCS: 70450; 71010; 73700; 74176; 80048; 80053; 81003; 84484; 85014; 85018; 85027; 86900; 86901; 86920; 87086; 87641; 93005; 94799; 99281; 99285; C9113; G0378; J1940; P9016

== ENCOUNTER 2017-06-05 14:36 | Emergency (ER) | payer OTHER ==
[~2017-06-05] VITALS: Ht 170.2 cm; Wt 89.2 kg
[~2017-06-05 14:36] MED LIST changes: +AMOX TR-K CLV1 EAC3 PO
[2017-06-05 16:01] LABS: ADD MIUA? NO; BILIRUBIN NEGATIVE; BLOOD NEGATIVE; COLOR YELLOW ((YELLOW)); GLUCOSE (STRIP) NEGATIVE; KETONES NEGATIVE; LEUKOCYTES NEGATIVE; NITRITE NEGATIVE; PROTEIN (STRIP) NEGATIVE; SPECIFIC GRAVITY 1.009 (1.000-1.030); UCUL ADDED? NO; UROBILINOGEN 0.2 MG/DL (0.2-1.0)
[2017-06-05 16:21] LABS: EOSINOPHIL (%) 0.8 % (0-5); EOSINOPHIL COUNT 0.1 K/uL (0-0.3); IMMATURE GRANULOCYTE (%) 0.8 % (0.0-0.7); IMMATURE GRANULOCYTE COUNT 0.1 K/uL; INSTRUMENT ABS NEUTROPHIL CT 6.6 K/uL; LYMPHOCYTE COUNT 0.8 K/uL (1.0-2.8); MCH 29.3 PG (29.0-34.0); MCHC 32.1 G/DL (30.0-36.0); MCV 91.5 FL (83-99); MEAN PLAT.VOLUME 9.8 uM^3 (9.5-12.4); MONOCYTE (%) 10.6 % (3-12); MONOCYTE COUNT 0.9 K/uL (0-0.8); NEUTROPHIL (%) 77.9 % (45-76); NEUTROPHIL COUNT 6.6 K/uL (1.8-6.4); PLATELET COUNT 231 K/uL (156-360); RBC DIS.WIDTH-CV 14.8 % (11.8-14.6); RBC DIS.WIDTH-SD 49.4 % (39-53); RED BLOOD COUNT 3.17 M/uL (3.80-5.20); WHITE BLOOD COUNT 8.5 K/uL (4.1-10.2)
[2017-06-05 16:29] LABS: CHLORIDE 100 mEq/L (99-109)
[2017-06-05 16:30] LABS: POTASSIUM 4.4 mEq/L (3.7-5.4); SODIUM 135 mEq/L (136-147)
[2017-06-05 16:32] LABS: GLUCOSE 91 mg/dL (70-99)
[2017-06-05 16:33] LABS: ANION GAP 13 MEQ/L (2-14)
[2017-06-05 16:34] LABS: INTER. NORMALIZED RATIO 1.2; PROTHROMBIN TIME 12.5 (9.2-11.2); PTT 34.3 (25-32)
[2017-06-05 16:35] LABS: ALKALINE PHOSPHATASE 77 IU/L (3-129); GFR ESTIMATE (CALCULATED) 35 mL/min/
[2017-06-05 16:37] LABS: UREA NITROGEN (BUN) 19 mg/dL (9-23)
[2017-06-05 16:41] LABS: TROP-I INTERPRETATION NEGATIVE; TROPONIN-I 0.06 ng/mL (0.0-0.30)
[2017-06-05 21:09] VITALS: BP 155/97
== END 2017-06-05 21:10 ==
LOC: EME 14:36
PROVIDERS: Emergency Medicine
DX: R10.84 Generalized abdominal pain (principal); J44.9 Chronic obstructive pulmonary disease, unspecified; I10 Essential (primary) hypertension; K21.9 Gastro-esophageal reflux disease without esophagitis; Z87.891 Personal history of nicotine dependence
CPT/HCPCS: 71010; 74176; 80053; 81003; 84484; 85025; 85610; 85730; 93005; 99281; 99285; J7030